=== PATIENT | female | born 1980 | race Caucasian/White ===

== ENCOUNTER 2019-02-17 23:18 | Inpatient (IN) ==
[2019-02-18] MEDS ORDERED: MoRPHine SULFATE 4 MG/ML 1 ML CARP\\VIAL IV STA (02:21)
[2019-02-18] MEDS ORDERED: HYDROmorphone INJ 0.5 MG/0.5 ML SYR ONE (02:32)
[2019-02-18] MEDS ORDERED: MAGNESIUM HYDROXIDE SUSP 30 ML UDC PO PRN (03:56)
[2019-02-18] MEDS ORDERED: ALUMINUM/MAGNESIUM SUSP 30 ML UDC PO PRN (03:56)
[2019-02-18] MEDS ORDERED: POLYETHYLENE (MIRALAX) 17 GM PACK PO PRN (03:56)
[2019-02-18 04:20] LABS: Basophils # (auto) 0.01 K/uL (0-0.2); Basophils % (auto) 0.1 %; Eosinophils # (auto) 0.03 K/uL (0-0.5); Eosinophils % (auto) 0.4 %; Hematocrit (blood only) 37.5 % (37-47); Hemoglobin 12.7 g/dL (12.0-16.0); Immature Granulocytes # (auto) 0.01 K/uL (0.00-0.02); Immature Granulocytes % (auto) 0.1 %; Lymphocytes # (auto) 1.86 K/uL (1.2-3.4); Lymphocytes % (auto) 25.1 %; Mean Corpuscular Volume 82.8 fL (80-100); Mean Platelet Volume 9.3 fL (7.4-10.4); Monocytes % (auto) 10.8 %; Neutrophils # (auto) 4.69 K/uL (1.4-6.5); Neutrophils % (auto) 63.5 %; Platelet Count 250 K/uL (130-400); RDW Coefficient of Variation 14.7 % (11.5-14.5); RDW Standard Deviation 44.7 fL (36.4-46.3); Red Blood Count 4.53 M/uL (4.2-5.4)
[2019-02-18] MEDS: PANTOprazole 40 MG in SYRINGE 0 ML IV SCH ×2 (04:23→21:32)
[2019-02-18 04:37] LABS: Albumin Level 3.3 gm/dl (3.4-5.0); BUN Creatinine Ratio 6.7 (10-20); Calcium 8.4 mg/dl (8.5-10.1); Creatinine Clr Calc Pharmacy 110.9 ml/min; Est GFR (African American) 128.3; Est GFR (Non-African American) 110.7; Magnesium 1.9 mg/dl (1.8-2.4)
[2019-02-18 04:39] LABS: Albumin Globulin Ratio 0.9 (0.9-2); Bilirubin,Total 0.4 mg/dl (0.2-1); Globulin 3.7 gm/dl (2.5-4.0)
[2019-02-18 04:57] LABS: Mean Corpuscular Hgb Conc 33.9 g/dL (32-36)
--- NOTE | 2019-02-18 05:03 | History & Physical Report ---
Date of Service February 18, 2019 Assessment & Plan (1) RUQ pain: Patient is a pleasant 39-year-old female H GERD, MVP, migraines, erythema nodosum who was a transfer from [facility] for abdominal pain and abnormal CT findings. RUQ pain/liver lesion Differential diagnosis includes: Esophagitis/gastritis/duodenitis/ulcer/cholecystitis or combination Liver lesion found on CT may be incidental considering patient has minimal risk factors and normal WBC count. Could be ?abscess or fatty liver deposition, unlikely HCC or metastasis. MRCP ordered this morning GI consulted, appreciate recommendations Zofran for nausea, IV Protonix twice daily per pharmacy Dilaudid as needed for pain (patient feels ill with morphine) Patient currently n.p.o. FYI if surgery is considered, patient prefers Dr. Green's group who are on-call through the weekend GERD Patient takes Protonix at home, currently converted to IV Erythema nodosum Patient states she has had extensive evaluation for this, including autoimmune work-up which was "half positive half negative" Patient states she has not had a flareup in 2 years. Constipation Bowel regimen as needed Migraines Patient has used Fioricet in the past, and states she has not had a migraine in almost 2 years Code: FULL DVTP: none given until further info gathered Dispo: admit to med/surg (2) Liver lesion: (3) GERD (gastroesophageal reflux disease): (4) Erythema nodosum: (5) Constipation: (6) History of migraine headaches: History of Present Illness Chief Complaint: RUQ pain Primary Care Provider: Santiago Olson Patient is a pleasant 39-year-old female H GERD, MVP, migraines, erythema nodosum who was a transfer from [facility] for abdominal pain and abno rmal CT findings. She presented with abdominal pain that radiated into her back x 2 days. She states in the last 24 hours, it has localized to her epigastrium and right upper quadrant. She states it is a sharp, grabbing pain with associated nausea but no vomiting. She was found to have a fever at OSH on arrival, but patient did not complain of feeling feverish. She denies any change to her stool patterns, and also denies dark urine or pale stool. Patient notes 2 years ago she had pancreatitis. She states that that time she had a full work- up of her gallbladder which showed marginal gallbladder disease. She states her HIDA scan showed her ejection fraction to be "3% higher than the limit" to remove her gallbladder. She states MRCP at that time was normal. She also had an EGD shortly after for continued nausea/indigestion, which revealed mild duodenitis. She takes a daily Protonix for this. Positive surgical history of appendectomy. Patient rarely drinks alcohol, and denies history of IV drug use. She is a current smoker. Positive family history of hepatic hemangioma. At [facility], a CT abdomen pelvis was performed. This revealed no abnormalities aside from a 3 cm liver lesion which queried HCC/malignancy/abscess. She was transferred here for further work-up. Labs at outside hospital included white blood cell count of 9, normal BMP, normal LFTs, normal lipase, negative troponin, normal lactic acid. She required several doses of Dilaudid to control her pain. Patient works as a nurse, and lives with her who is employed as a respiratory therapist at this facility. Allergies Allergy/AdvReac Type Severity Reaction Status Date / Time No Known Allergies Allergy Unverified 02/18/19 02:08 Home Medications Home Medications Medication Instructions Recorded Confirmed Type Prodrin 2 tabs PO Q6H PRN 02/18/19 02/18/19 History ondansetron HCl [Zofran] 8 mg PO Q8H PRN 02/18/19 02/18/19 History pantoprazole [Protonix] 40 mg PO DAILY 02/18/19 02/18/19 History Past Med/Surg History Social History Preferred Language: Estonian Communication Ability: Effective Health Unit Clerk Required: No Beliefs That Will Affect Care: None Current Living Situation: Spouse Feels Safe at Home: Yes Safety Concerns: Feels Safe At This Time Smoking Status: Current every day smoker Tobacco Type: cigarettes Do You Dip or Chew Tobacco: No Hx Alcohol Use: Yes Hx Substance Use: No Review of Systems Review of Systems: All systems reviewed & are unremarkable except as noted in HPI & below Constitutional: + fever and + anorexia; no chills Gastrointestinal: + abdominal pain and + nausea; no vomiting, no change in stools and no diarrhea/loose stools Physical Exam Constitutional: WD/WN, vitals as above + ill appearing, + diaphoretic and + overweight; + uncomfortable Eyes: PERRL, conjunctivae normal, anicteric sclerae ENMT: external ear and nose normal, oropharynx normal Neck: normal visual inspection Respiratory: normal respiratory effort, lungs clear to auscultation Cardiovascular: RRR, no murmur, no edema Gastrointestinal (Abdomen): Inspection/Auscultation: + abdomen distended Percussion/Palpation: + abdomen tender (RUQ, +murphys) and abdomen soft Musculoskeletal: no cyanosis or clubbing, extremities motor strength 5/5 Skin: no rashes, warm and dry Neurologic: PERRL, EOMI, accommodation nl, no face palsy, no dysarthria Psychiatric: A+Ox3, euthymic affect Results & Data Vital Signs (Past 12 Hours) Vital Signs Temp Pulse Resp BP Pulse Ox 02/18/19 00:58 36.8 C 100 H 16 119/72 98 Laboratory Results 02/18/19 02/18/19 Range/Units 04:05 04:05 WBC 7.40 (4.8-10.8) K/uL RBC 4.53 (4.2-5.4) M/uL Hgb 12.7 (12.0-16.0) g/dL Hct 37.5 (37-47) % MCV 82.8 (80-100) fL MCH 28.0 (25-34) pg MCHC 33.9 (32-36) g/dL RDW Std Deviation 44.7 (36.4-46.3) fL RDW Coeff of Jana 14.7 H (11.5-14.5) % Plt Count 250 (130-400) K/uL MPV 9.3 (7.4-10.4) fL Immature Gran % (Auto) 0.1 % Neut % (Auto) 63.5 % Lymph % (Auto) 25.1 % [place] % (Auto) 10.8 % Eos % (Auto) 0.4 % Baso % (Auto) 0.1 % Immature Gran # (Auto) 0.01 (0.00-0.02) K/uL Neut # (Auto) 4.69 (1.4-6.5) K/uL Lymph # (Auto) 1.86 (1.2-3.4) K/uL [place] # (Auto) 0.80 H (0.11-0.59) K/uL Eos # (Auto) 0.03 (0-0.5) K/uL Baso # (Auto) 0.01 (0-0.2) K/uL Sodium 139 (136-145) mmol/L Potassium 4.0 (3.5-5.1) mmol/L Chloride 110 H (98-107) mmol/L Carbon Dioxide 22 (21-32) mmol/L Anion Gap 7.0 (3-11) BUN 5 L (7-18) mg/dl Creatinine 0.70 (0.6-1.2) mg/dl Est Cr Clr Drug Dosing 110.9 ml/min Est GFR ( Amer) 128.3 Est GFR (Non-Af Amer) 110.7 BUN/Creatinine Ratio 6.7 L (10-20) Glucose 80 (70-99) mg/dl Calcium 8.4 L (8.5-10.1) mg/dl Magnesium 1.9 (1.8-2.4) mg/dl Total Bilirubin 0.4 (0.2-1) mg/dl AST 9 L (15-37) U/L ALT 19 (12-78) U/L Alkaline Phosphatase 73 (45-117) U/L Total Protein 7.0 (6.4-8.2) gm/dl Albumin 3.3 L (3.4-5.0) gm/dl Globulin 3.7 (2.5-4.0) gm/dl Albumin/Globulin Ratio 0.9 (0.9-2) Lipase 41 L (73-393) U/L Code Status & VTE Plan Code Status full Supervising Physician Co-Signing Physician Notes Attending addendum: I have physically seen this patient, have supervised the medical residents activities, and agree with the H&P unless as otherwise noted. Assessment and Plan: Right upper quadrant/epigastric pain- Patient with 3 cm questionable liver lesion on CT from [facility] is unlikely anything significant and not likely contributing to her present symptoms. NPO MRCP ordered. Consult Dr. Pierce from gastroenterology, as patient is likely to need an EGD to assess for possible esophagitis/gastritis/duodenitis/ulcer. Zofran 4 mg IV every 6 hours PRN. Pantoprazole 40 mg IV twice daily. Dilaudid 1 mg IV every 3 hours as needed severe pain. Acetaminophen 1000 mg IV every 8 hours PRN mild pain or temperature. Remainder of orders and notations as noted. PG Care Time/CCT Total # of Minutes Spent Total Time Spent with Patient: Total time spent is greater than 50% in coordination of care (as documented) at patient's floor/unit and/or counseling patient: Resident Activity Tracking Resident Involvement: Resident Care Provided Care Provided: Adult Hospital Medicine (1) GERD (gastroesophageal reflux disease) Esophagitis presence: esophagitis presence not specified Qualified Code(s): K21.9 - Gastro-esophageal reflux disease without esophagitis (2) Constipation Constipation type: chronic idiopathic constipation Qualified Code(s): K59.04 - Chronic idiopathic constipation
--- NOTE | 2019-02-18 07:23 | Magnetic Resonance Report ---
MR MRCP HISTORY: 39 years-old Female RUQ pain acute epigastric and right upper quadrant abdominal pain COMPARISON: None available TECHNIQUE: MRCP without the use of IV contrast was obtained utilizing institutional protocol FINDINGS: The large mzuli-av-myva rn cardiac localizer images demonstrate no gross abnormality of the imaged chest o r pelvis. The spleen is mildly enlarged, 14.0 cm. Trace ascites inferior to the right hepatic lobe. I ll-defined 2.2 x 1.9 cm ovoid lesion of roughly slightly increased T2 signal about the left hepatic l obe adjacent to the falciform ligament is noted with air noted within the adjacent hepatic flexure. Indeterminate 4 mm T2 hypointense lesion of the lateral interpolar left kidney. 9 mm T2 hyperintense lesion of the inferior pole right kidney may reflect a cyst. Aorta and IVC are unremarkable. No adeno juan. Or bowel dilation or wall thickening identified on these images. Suggestion of mild colonic di verticulosis. The common bile duct is normal, 3 mm transversely. No intrahepatic biliary ductal dilat ion. Gallbladder is unremarkable without cholelithiasis or wall thickening. No evidence of choledocho lithiasis. The pancreatic duct appears normal. No evidence of pancreatic divisum. Suggestion of perin eural root sleeve cysts about the spine. Soft tissues are unremarkable. IMPRESSION: 1. Unremarkable gallbladder without cholelithiasis, biliary ductal dilation or choledocholithiasis. 2. Mild splenomegaly. 3. 2.2 cm ill-defined ovoid area of increased signal about the left hepatic lobe adjacent to the falc iform ligament is likely artifactual secondary to adjacent air-filled hepatic flexure. This could be correlated with a follow-up right upper quadrant ultrasound if of further clinical concern. 4. Trace free fluid noted inferior to the right hepatic lobe. The above report was generated using voice recognition software. It may contain grammatical, syntax o r spelling errors. Electronically signed by: Av Dempsey M.D. 02/18/2019 7:22 AM
--- NOTE | 2019-02-18 07:34 | Hospitalist Progress Note ---
Date of Service February 18, 2019 Assessment & Plan (1) RUQ pain: Patient is a pleasant 39-year-old female PMH GERD, MVP, migraines, erythema nodosum who was a transfer from [facility] for abdominal pain and abnormal CT findings. RUQ pain/liver lesion Liver lesion found on CT may be incidental considering patient has minimal risk factors and normal WBC count. MRCP cyst 02/18 once again has ill described artifact versus a lesion not described as abscess Ultrasound of right upper quadrant shows normal liver parenchyma GI consulted, await recommendations, will try GI cocktail in the meantime patient's previous history of pancreatitis for undetermined etiology with work- up in the [place] system Zofran for nausea, IV Protonix twice daily per pharmacy Dilaudid as needed for pain (patient feels ill with morphine) Patient remains n.p.o. GERD Patient takes Protonix at home, currently converted to IV Erythema nodosum Patient states she has had extensive evaluation for this, including autoimmune work-up which was "half positive half negative" Patient states she has not had a flareup in 2 years. Constipation Bowel regimen as needed Migraines Patient has used Fioricet in the past, and states she has not had a migraine in almost 2 years Code: FULL DVTP: none given until further info gathered Dispo: admit to med/surg (2) Liver lesion: (3) GERD (gastroesophageal reflux disease): (4) Erythema nodosum: (5) Constipation: (6) History of migraine headaches: Subjective Patient is transferred from [facility] with significant right upper quadrant and epigastric pain which continues. There was a consideration of undescribed abnormality seen on CT scan of the abdomen pelvis. Subsequently she underwent an MRCP here which once again had a very ill-defined possible artifact versus abnormality in the liver recommending ultrasound. Ultrasound was performed here with attention to that area and read as completely normal with no abnormality seen in the parenchyma of the liver. We will continue to await gastrointestinal consultation will attempt a GI cocktail in the meantime to see if this is gastric related pain her LFTs and lipase have been unremarkable Review of Systems Review of Systems: ROS: well nourished well developed. No double vision blurry vision No problems with speech or swallowing No palpitations, chest pain or pressure No Wheezing or breathing issues Epigastric and right upper quadrant abdominal pain with mild nausea but no vomiting or diarrhea No burning urine urine frequency or changes in color No focal joint pain or muscle pain No skin rashes or oral lesions No unusual bruising or bleeding No focused back pain or numbness or loss of strength No changes in memory or confusion Physical Exam Physical Exam: The patient appeared in moderate to severe pain Vital signs as documented. Head exam is unremarkable. normocephalic, atraumatic Neck is without jugular venous distension, thyromegaly, or lymphademopathy Lungs are clear to auscultation and percussion. Cardiac exam reveals Rhythm is regular. First and second heart sounds normal. Abdominal exam reveals normal bowel sounds, soft no guarding no rebound she is markedly tender in the right upper quadrant and epigastrium not along the border of the ribs but actually inferior to the. Extremities are nonedematous and both pedal pulses are present Neurologic exam is A&Ox3, no focal deficits, strength is equal bilateral Psychologically seems neither anxious or depressed Skin is warm Dry without bruises or lesions Results & Data Vital Signs (Past 12 Hours) Vital Signs Temp Pulse Resp BP Pulse Ox 02/18/19 00:58 36.8 C 100 H 16 119/72 98 PG Care Time/CCT Total # of Minutes Spent Total Time Spent with Patient: Total time spent is greater than 50% in coordination of care (as documented) at patient's floor/unit and/or counseling patient: (1) GERD (gastroesophageal reflux disease) Esophagitis presence: esophagitis presence not specified Qualified Code(s): K21.9 - Gastro-esophageal reflux disease without esophagitis (2) Constipation Constipation type: chronic idiopathic constipation Qualified Code(s): K59.04 - Chronic idiopathic constipation
[2019-02-18] MEDS: HYDROmorphone INJ 1 MG/ML SYRINGE IV PRN ×2 (08:45→12:36)
[2019-02-18] MEDS ORDERED: KETOROLAC 30 MG/ML VIAL IV ONE (11:10)
[2019-02-18] MEDS: LACTATED RINGER'S 1,000 ML IV SCH ×2 (12:28→19:20)
--- NOTE | 2019-02-18 12:32 | Ultrasound Report ---
ABDOMINAL ULTRASOUND, RIGHT UPPER QUADRANT HISTORY: Abnormal MRCP. Assess for liver abnormality.. COMPARISON: MRCP 02/18/2019. FINDINGS: Pancreas: Partially obscured by overlying bowel gas and the patient's body habitus. However, the visu alized pancreas appears unremarkable. Liver: No hepatic lesions. The liver measures 17 cm in length. Specifically, no abnormality adjacent to the falciform ligament. Gallbladder: No gallbladder wall thickening. No gallstones. CBD: 4 mm. Right kidney: No hydronephrosis. IMPRESSION: No significant abnormality identified within the right upper quadrant. Specifically, the liver appear s unremarkable. Electronically signed by: Amaury Ayala M.D. 02/18/2019 12:31 PM
[2019-02-18] MEDS: ONDANSETRON INJ 2 MG/ML 2 ML VIAL IV PRN (12:37)
[2019-02-18] MEDS ORDERED: ALUMINUM/MAGNESIUM SUSP 18 ML, LIDOCAINE HCL VISCOUS 2% 6 ML, BARCODE IDENTIFIER 1 EA PO ONE (14:00)
[2019-02-19] MEDS: ONDANSETRON INJ 2 MG/ML 2 ML VIAL IV PRN ×3 (00:30→23:05)
[2019-02-19] MEDS: HYDROmorphone INJ 0.5 MG/0.5 ML SYR IV PRN (00:31)
[2019-02-19] MEDS: LACTATED RINGER'S 1,000 ML IV SCH ×3 (05:57→23:15)
[2019-02-19] MEDS: HYDROmorphone INJ 1 MG/ML SYRINGE IV PRN ×4 (08:21→23:05)
[2019-02-19] MEDS: PANTOprazole 40 MG in SYRINGE 0 ML IV SCH ×2 (08:23→21:00)
[2019-02-19 08:46] LABS: Basophils # (auto) 0.01 K/uL (0-0.2); Basophils % (auto) 0.1 %; Eosinophils # (auto) 0.03 K/uL (0-0.5); Eosinophils % (auto) 0.4 %; Hematocrit (blood only) 36.4 % (37-47); Hemoglobin 12.2 g/dL (12.0-16.0); Immature Granulocytes # (auto) 0.01 K/uL (0.00-0.02); Immature Granulocytes % (auto) 0.1 %; Lymphocytes % (auto) 14.9 %; Mean Corpuscular Hgb Conc 33.5 g/dL (32-36); Mean Corpuscular Volume 83.3 fL (80-100); Mean Platelet Volume 9.1 fL (7.4-10.4); Monocytes # (auto) 0.96 K/uL (0.11-0.59); Neutrophils # (auto) 5.25 K/uL (1.4-6.5); Neutrophils % (auto) 71.5 %; Platelet Count 231 K/uL (130-400); RDW Coefficient of Variation 14.5 % (11.5-14.5); RDW Standard Deviation 44.7 fL (36.4-46.3); Red Blood Count 4.37 M/uL (4.2-5.4); White Blood Count 7.36 K/uL (4.8-10.8)
[2019-02-19 09:11] LABS: Albumin Level 3.3 gm/dl (3.4-5.0); BUN Creatinine Ratio 7.1 (10-20); Calcium 8.8 mg/dl (8.5-10.1); Creatinine Clr Calc Pharmacy 127.2 ml/min; Est GFR (African American) 134.2; Est GFR (Non-African American) 115.8
[2019-02-19 09:14] LABS: Albumin Globulin Ratio 0.9 (0.9-2); Bilirubin,Total 0.6 mg/dl (0.2-1); Globulin 3.7 gm/dl (2.5-4.0)
--- NOTE | 2019-02-19 11:12 | Progress Note ---
DATE: 02/19/2019 SUBJECTIVE: The patient continues to complain of right upper quadrant pain, which has worsened overnight with now radiation to the right shoulder blade area in the right upper back. She has been getting Dilaudid for pain, but it is making her feel kind of spacey. She was not able to get her biliary scan done late yesterday afternoon and they do not do them on the weekends, so will had to be postponed till Thursday. Laboratory shows that her liver profile and lipase and amylase are still normal. She is afebrile, but has a low grade temperature at 37.8. PHYSICAL EXAMINATION: She appears to be in some abdominal pain. On exam, she has an umbilical scar from a piercing and tenderness in the right upper quadrant and epigastric area as well as the right scapular area posteriorly with a persistent positive Alvarez sign. IMPRESSION AND PLAN: The patient has what appears to be acute gallbladder disease without stones. Her mother and several of her mother's aunts have all had their gallbladders out. Mother did not have stones either. I strongly suspect that she has gallbladder disease. Surgeon on-call will be consulted today by Dr. Paige to render an opinion about whether she needs to proceed with laparoscopic cholecystectomy or wait for biliary scan first. We will continue to follow the patient.
--- NOTE | 2019-02-19 14:17 | Surgery Consultation ---
Date of Consultation February 19, 2019 Assessment & Plan (1) Liver lesion: Present on Admission?: Yes (2) RUQ pain: 39-year-old female with epigastric, right upper quadrant abdominal pain along with back pain. There was an abnormality identified on her liver which could be causing some of her symptoms. She also has had some fevers and tachycardia. However this is not sound biliary in nature. She may have underlying gallbladder disease, but there is does not appear to be an acute cholecystitis. I discussed the findings with Dr. Paige and with radiology. We will proceed with an MRI of the liver with Eovist to further differentiate the liver lesion. We will then proceed with a HIDA scan with ejection fraction to determine if there is any acute or chronic cholecystitis present. If the liver lesion needs any intervention or biopsies, we would recommend transfer to a tertiary facility. It appears to be a benign lesion and the HIDA scan reveals gallbladder disease then will discuss cholecystectomy as an inpatient or outpatient. I do long conversation with the family as well as coordinating care with the other services. The patient and her expressed understanding, all questions were answered, and they agree with the plan of care as stated. Surgery will follow. Present on Admission?: Yes History of Present Illness Reason for Consultation: Abdominal pain Attending Physician: Earnest Paige MD History of Present Illness 39-year-old female presented to the emergency department at [facility] with back pain and right upper quadrant epigastric abdominal pain. She is had a few episodes in the past. She also notes that she has had pancreatitis in the past but the pain is different from that. She had an evaluation for gallbladder disease in the past with a HIDA scan that showed a normal ejection fraction but was just above the cutoff for biliary dyskinesia. She has never had a history of stones. She does note vomiting after eating greasy foods. Her pain started and is not brought on by eating. Pain initially was in her back but then she developed right upper quadrant epigastric pain. It was a sharp cramping pain. Her back pain had resolved but now is returned. She denies any nausea or emesis at this time. She had a CT scan performed at [facility] which showed irregularity in her liver near the falciform ligament that was concerning for a neoplasm. The patient elected for transfer to [facility]. Yesterday she had an MRCP that showed no stones or choledocholithiasis, and no inflammation of the gallbladder. On that report it was noted that the abnormality in her liver may be artifact. She had an ultrasound to further assess and there was no lesion in the liver noted. She states that her mother had a liver hemangioma that was excised at the same time as her gallbladder surgery by Dr. Conley in [place]. She also has multiple members in her family who have had their gallbladders removed despite not having traditional symptoms or findings on imaging. Allergies Allergy/AdvReac Type Severity Reaction Status Date / Time No Known Allergies Allergy Unverified 02/18/19 02:08 Home Medications Home Medications Medication Instructions Recorded Confirmed Type Prodrin 2 tabs PO Q6H PRN 02/18/19 02/18/19 History ondansetron HCl [Zofran] 8 mg PO Q8H PRN 02/18/19 02/18/19 History pantoprazole [Protonix] 40 mg PO DAILY 02/18/19 02/18/19 History Patient History Social History Preferred Language: Khmer Communication Ability: Effective Talent Acquisition Director Required: No Beliefs That Will Affect Care: None Current Living Situation: Spouse Feels Safe at Home: Yes Safety Concerns: Feels Safe At This Time Smoking Status: Current every day smoker Tobacco Type: cigarettes Do You Dip or Chew Tobacco: No Hx Alcohol Use: Yes Hx Substance Use: No Review of Systems Review of Systems: All systems reviewed & are unremarkable except as noted in HPI & below Physical Exam Constitutional: WD/WN, vitals as above Eyes: PERRL, conjunctivae normal, anicteric sclerae ENMT: external ear and nose normal, oropharynx normal Neck: trachea midline, no thyromegaly Respiratory: normal respiratory effort, lungs clear to auscultation Cardiovascular: RRR, no murmur, no edema Gastrointestinal (Abdomen): Inspection/Auscultation: abdomen not distended Percussion/Palpation: + abdomen tender (Tender to palpation in the right upper quadrant epigastrium. Negative Alvarez sign) and abdomen soft; no guarding and abdomen not rigid Musculoskeletal: no cyanosis or clubbing, extremities motor strength 5/5 Skin: no rashes, warm and dry Neurologic: patellar DTR's 2+ bilat, sensation intact Genitourinary: no vaginal lesions, no adnexal mass Results & Data Vital Signs (Past 12 Hours) Vital Signs Temp Pulse Resp BP Pulse Ox 02/19/19 10:47 37.2 C 02/19/19 07:00 37.8 C H 90 19 117/70 96 Laboratory Results Laboratory Results - last 24 hr 02/19/19 02/19/19 08:38 08:38 WBC 7.36 RBC 4.37 Hgb 12.2 Hct 36.4 L MCV 83.3 MCH 27.9 MCHC 33.5 RDW Std Deviation 44.7 RDW Coeff of Jana 14.5 Plt Count 231 MPV 9.1 Immature Gran % (Auto) 0.1 Neut % (Auto) 71.5 Lymph % (Auto) 14.9 [place] % (Auto) 13.0 Eos % (Auto) 0.4 Baso % (Auto) 0.1 Immature Gran # (Auto) 0.01 Neut # (Auto) 5.25 Lymph # (Auto) 1.10 L [place] # (Auto) 0.96 H Eos # (Auto) 0.03 Baso # (Auto) 0.01 Sodium 141 Potassium 4.0 Chloride 109 H Carbon Dioxide 19 L Anion Gap 12.0 H BUN 4 L Creatinine 0.61 Est Cr Clr Drug Dosing 127.2 Est GFR ( Amer) 134.2 Est GFR (Non-Af Amer) 115.8 BUN/Creatinine Ratio 7.1 L Glucose 77 Calcium 8.8 Total Bilirubin 0.6 AST 11 L ALT 20 Alkaline Phosphatase 72 Total Protein 7.0 Albumin 3.3 L Globulin 3.7 Albumin/Globulin Ratio 0.9 Lipase [address] scan reviewed by myself and with radiologist over the phone and the report was reviewed. There is a 2 to 3 cm abnormality lateral to the falciform ligament in the liver. Differential is broad but includes FNH, adenoma, malignancy, developing abscess, or other neoplastic process. MR MRCP HISTORY: 39 years-old Female RUQ pain acute epigastric and right upper quadrant abdominal pain COMPARISON: None available TECHNIQUE: MRCP without the use of IV contrast was obtained utilizing institutional protocol FINDINGS: The large [id number] global logistics analyst localizer images demonstrate no gross abnormality of the imaged chest or pelvis. The spleen is mildly enlarged, 14.0 cm. Trace ascites inferior to the right hepatic lobe. Ill-defined 2.2 x 1.9 cm ovoid lesion of roughly slightly increased T2 signal about the left hepatic lobe adjacent to the falciform ligament is noted with air noted within the adjacent hepatic flexure. Indeterminate 4 mm T2 hypointense lesion of the lateral interpolar left kidney. 9 mm T2 hyperintense lesion of the inferior pole right kidney may reflect a cyst. Aorta and IVC are unremarkable. No adenopathy. Or bowel dilation or wall thickening identified on these images. Suggestion of mild colonic diverticulosis. The common bile duct is normal, 3 mm transversely. No intrahepatic biliary ductal dilation. Gallbladder is unremarkable without c holelithiasis or wall thickening. No evidence of choledocholithiasis. The pancreatic duct appears normal. No evidence of pancreatic divisum. Suggestion of perineural root sleeve cysts about the spine. Soft tissues are unremarkable. IMPRESSION: 1. Unremarkable gallbladder without cholelithiasis, biliary ductal dilation or choledocholithiasis. 2. Mild splenomegaly. 3. 2.2 cm ill-defined ovoid area of increased signal about the left hepatic lobe adjacent to the falciform ligament is likely artifactual secondary to adjacent air-filled hepatic flexure. This could be correlated with a follow-up right upper quadrant ultrasound if of further clinical concern. 4. Trace free fluid noted inferior to the right hepatic lobe. The above report was generated using voice recognition software. It may contain grammatical, syntax or spelling errors. ABDOMINAL ULTRASOUND, RIGHT UPPER QUADRANT HISTORY: Abnormal MRCP. Assess for liver abnormality.. COMPARISON: MRCP 02/18/2019. FINDINGS: Pancreas: Partially obscured by overlying bowel gas and the patient's body habitus. However, the visualized pancreas appears unremarkable. Liver: No hepatic lesions. The liver measures 17 cm in length. Specifically, no abnormality adjacent to the falciform ligament. Gallbladder: No gallbladder wall thickening. No gallstones. CBD: 4 mm. Right kidney: No hydronephrosis. IMPRESSION: No significant abnormality identified within the right upper quadrant. Specifically, the liver appears unremarkable.
[2019-02-19] MEDS ORDERED: GADOXETATE DISODIUM IV PRN (15:03)
--- NOTE | 2019-02-19 15:08 | Hospitalist Progress Note ---
Date of Service February 19, 2019 Assessment & Plan (1) RUQ pain: Patient is a pleasant 39-year-old female PMH GERD, MVP, migraines, erythema nodosum who was a transfer from [facility] for abdominal pain and abnormal CT findings. RUQ pain/liver lesion Liver lesion found on CT not corroborated on ultrasound. GI consulted, felt perhaps pursuing HIDA scan to consider cholecystitis or at least a malfunctioning gallbladder to cause her discomfort despite normal lab testing. Patient did have one bout of minor elevation of her temperature. Surgical evaluation is recommended MRI of the liver to contact the evaluate and rule out this what may be a artifact versus mass in the liver, pursue his HIDA scan this week and consider surgical correction if abnormalities are seen. Dr. Duran is involved in case this weekend. Zofran for nausea, IV Protonix twice daily per pharmacy Dilaudid as needed for pain (patient feels ill with morphine) Patient remains n.p.o. GERD Patient takes Protonix at home, currently converted to IV had no improvement with GI cocktail at this time Erythema nodosum Patient states she has had extensive evaluation for this, including autoimmune work-up which was "half positive half negative" Patient states she has not had a flareup in 2 years. He has no peripheral issues at this time Constipation Bowel regimen as needed Migraines Patient has used Fioricet in the past, and states she has not had a migraine in almost 2 years continues without migraines Code: FULL DVTP: none given until further info gathered Dispo: admit to med/surg (2) Liver lesion: (3) GERD (gastroesophageal reflux disease): (4) Erythema nodosum: (5) Constipation: (6) History of migraine headaches: Subjective I was called to visit the patient immediately in the morning upon arrival to the hospital to the family's discontent with her care from the overnight. There is some confusion about the timing of HIDA scan, and typically a non-stat HIDA scan is not performed we can do the radioisotope. The patient had one bout of low- grade temperature to 37.8 had no abnormal white blood cell count or lab testing and HIDA scan was deemed to be possibly until Thursday however the patient's pain was significant overnight. Her was at the nurses station using a loud voice and pacing about requested to speak to the physician. He claims that overnight he was rebuffed by the nighttime doctor being "too busy" to come see them and he was displeased about this. I evaluated the patient she was in mild distress she is continues to have pain in her abdomen. It was best understood that we would involve surgery to make a decision whether we should pursue a HIDA scan or other diagnostic evaluation given the initial complaints of having abnormality seen on imaging and persistent pain in the right upper quadrant despite normal laboratory testing. This seemed to satisfy the and I personally spoke to both Dr. Duran and his physician's elder assistant multiple occasions throughout the morning to keep in touch and apprised of was happy with this patient's care. At this point in time the plan of care was to pursue an MRI of the liver and then consider doing HIDA scan either today or early tomorrow morning to determine if the patient will require cholecystectomy. The patient and her seemed pleased with this treatment plan Review of Systems Review of Systems: ROS: well nourished well developed. Mild to moderate distress No double vision blurry vision No problems with speech or swallowing No palpitations, chest pain or pressure No Wheezing or breathing issues Epigastric right upper quadrant and right CVA abdominal pain with mild nausea but no vomiting or diarrhea No burning urine urine frequency or changes in color No focal joint pain or muscle pain No skin rashes or oral lesions No unusual bruising or bleeding No focused back pain or numbness or loss of strength No changes in memory or confusion Physical Exam Physical Exam: The patient appeared emotionally and physically distraught Vital signs as documented. Head exam is unremarkable. normocephalic, atraumatic Neck is without jugular venous distension, thyromegaly, or lymphademopathy Lungs are clear to auscultation and percussion. Cardiac exam reveals Rhythm is regular. First and second heart sounds normal. Abdominal exam reveals normal bowel sounds, she is soft but tender in epigastrium right upper quadrant mild CVA angle tenderness on the right Extremities are nonedematous and both pedal pulses are present Neurologic exam is A&Ox3, no focal deficits, strength is equal bilateral Psychologically seems neither anxious or depressed Skin is warm Dry without bruises or lesions Results & Data Vital Signs (Past 12 Hours) Vital Signs Temp Pulse Resp BP Pulse Ox 02/19/19 10:47 37.2 C 02/19/19 07:00 37.8 C H 90 19 117/70 96 PG Care Time/CCT Total # of Minutes Spent Total Time Spent with Patient: Total time spent is greater than 50% in coordination of care (as documented) at patient's floor/unit and/or counseling p atient: (1) GERD (gastroesophageal reflux disease) Esophagitis presence: esophagitis presence not specified Qualified Code(s): K21.9 - Gastro-esophageal reflux disease without esophagitis (2) Constipation Constipation type: chronic idiopathic constipation Qualified Code(s): K59.04 - Chronic idiopathic constipation
--- NOTE | 2019-02-19 16:26 | Magnetic Resonance Report ---
MR abdomen wo/w con CLINICAL HISTORY: 39 years-old Female presenting with indeterminant liver lesion, right upper quadran t pain. TECHNIQUE: Multisequence, multiplanar MR imaging of the abdomen was performed before and after the ad ministration of intravenous contrast. IV contrast: 10 mL of Eovist. COMPARISON: MRCP performed the previous day as well as outside CT from 02/17/2019. FINDINGS: Localizer images: Unremarkable. Lung bases: Lung base clear. Normal heart size. No pericardial or pleural effusion. Liver: Normal morphology. The fat fraction is normal. Patent hepatic vasculature. Solitary lesion not ed in the medial left hepatic lobe, which is mildly T1 hypointense and centrally T1 isointense, perip herally T2 hyperintense and centrally T2 hypointense, resulting in a target-like appearance. This is also diffusion hyperintense with heterogeneously low signal on ADC. Heterogeneous predominantly perip heral enhancement on portal venous and delayed phases. This does not have discontinuous peripheral no dular pattern. No early arterial enhancement. This lesion does not retain contrast on hepatobiliary s pecific phase. This lesion measures 3.5 cm in diameter on hepatobiliary specific phase. Surrounding t ransient hepatic intensity difference most pronounced on arterial phase. No additional lesion is evid ent. Biliary: No intrahepatic or extrahepatic biliary ductal dilatation. No gallstones. No pathological bl adder distention or pericholecystic fluid. Trace gallbladder wall thickening at the fundus, nonspecif ic. Pancreas: Normal. Spleen: Normal. Adrenal glands: Normal. Kidneys and ureters: Normal. No hydronephrosis. Bowel: Normal. No bowel obstruction. Peritoneal cavity: No free fluid. Lymph nodes: No enlarged lymph nodes in the abdomen. Vasculature: Aorta and IVC patent and normal in caliber. Abdominal wall: Normal. Musculoskeletal: Normal. IMPRESSION: 1. 3.5 cm solitary hepatic lesion in the medial left hepatic lobe. In the absence of a known maligna ncy, metastatic lesion is considered unlikely. This lesion is not definitively benign. Differential c onsiderations include adenoma, fibrolamellar hepatocellular carcinoma, hepatic epithelioid hemangioen dothelioma (HEHE), or peliosis hepatis. Direct tissue sampling recommended. 2. No convincing evidence of cholecystitis. No cholelithiasis. Mild gallbladder wall thickening at t he fundus may relate to adenomyomatosis or nonspecific secondary edema. Electronically signed by: Jc Ferrell M.D. 02/19/2019 4:25 PM
[2019-02-19] MEDS: ACETAMINOPHEN 65 ML IV PRN (17:33)
--- NOTE | 2019-02-19 18:04 | Surgery Progress Note ---
Date of Service February 19, 2019 Assessment & Plan (1) Liver lesion: Asked to discuss results of MRI with patient and . MRI showed a 3.5 cm mass with broad differential to include benign and malignant masses. Recommending tissue biopsy. I do not feel this would be amenable to a surgical biopsy as it is intraparenchymal. She will need percutaneous biopsy, likely CT- guided. This can be performed either as an inpatient or outpatient, but will likely require interventional radiology at a tertiary center. Regarding her abdominal pain and fevers, I informed her that I do not think that it would be yeboah to perform a cholecystectomy for dyskinesia or a nonacute process, as she may need further procedures in the future for the liver lesion. However, if she has an acute cholecystitis number would consider cholecystectomy. We will proceed with a HIDA scan without an ejection fraction. I discussed this with the patient and her and the nurse was present. All questions answered, the plan of care was discussed and the patient and her agree with the plan of care as stated. Present on Admission?: Yes (2) RUQ pain: Present on Admission?: Yes Results & Data Vital Signs (Past 12 Hours) Vital Signs Temp Pulse Resp BP Pulse Ox 02/19/19 18:00 37.2 C 02/19/19 16:30 38.5 C H 93 H 16 118/76 96 02/19/19 10:47 37.2 C 02/19/19 07:00 37.8 C H 90 19 117/70 96
[2019-02-20] MEDS: HYDROmorphone INJ 0.5 MG/0.5 ML SYR IV PRN (01:42)
[2019-02-20] MEDS: LACTATED RINGER'S 1,000 ML IV SCH (07:31)
[2019-02-20] MEDS ORDERED: PIPERACILL/TAZOBAC CONSULT ACTIVE PRN (07:46)
[2019-02-20] MEDS ORDERED: PIPERACILLIN/TAZOBACTAM 4.5 GM in DEXTROSE 5% 100 ML IV ONE (08:30)
[2019-02-20] MEDS: ONDANSETRON INJ 2 MG/ML 2 ML VIAL IV PRN ×2 (10:53→19:09)
[2019-02-20] MEDS: HYDROmorphone INJ 1 MG/ML SYRINGE IV PRN ×2 (10:53→19:10)
[2019-02-20] MEDS: PANTOprazole 40 MG in SYRINGE 0 ML IV SCH (10:54)
--- NOTE | 2019-02-20 10:56 | Nuclear Medicine Report ---
NM hepatobiliary CLINICAL HISTORY: Right upper quadrant pain. COMPARISON STUDY: Right upper quadrant ultrasound February 18, 2019. CT of the abdomen and pelvis February 052018. MRI of the abdomen February 19, 2019. TECHNIQUE: 5 mCi of technetium 99m Choletec was injected IV at 10:00 AM on February 20, 2019. Immediately following injection, imaging of the abdomen was performed in the anterior projection and carried out for 35 minutes. FINDINGS: Hepatic uptake of radiotracer is prompt and homogeneous. Activity is identified within the common bile duct, small bowel and gallbladder 10 minutes. IMPRESSION: No evidence for acute cholecystitis. Electronically signed by: Sunny Mckenzie M.D. 02/20/2019 10:54 AM
--- NOTE | 2019-02-20 11:04 | Surgery Progress Note ---
Date of Service February 20, 2019 Assessment & Plan (1) Liver lesion: 39-year-old female with abdominal pain, fevers, and indeterminate liver lesion confirmed by MRI yesterday. Her HIDA scan is negative for acute cholecystitis. Her constellation of symptoms is difficult to explain, but I feel that she would benefit from evaluation at a tertiary center. No indication for cholecystectomy at this time Recommend transfer to tertiary center for further evaluation of liver lesion along with fevers and abdominal pain. This could still represent an inflammatory infectious process. Call with questions or concerns Subjective 39-year-old female transferred from [place] for abdominal pain. During her work-up was identified that she has a 3.5 cm mass in her liver. She continues to have fevers, and epigastric pain radiating to her back. HIDA scan was performed this morning and was negative for acute cholecystitis. Physical Exam Constitutional: WD/WN, vitals as above Gastrointestinal (Abdomen): Percussion/Palpation: + abdomen tender (Epigastric tenderness to palpation, no guarding) and abdomen soft; no guarding and abdomen not rigid Results & Data Vital Signs (Past 12 Hours) Vital Signs Temp Pulse Resp BP Pulse Ox 02/20/19 07:23 38.0 C H 81 16 129/83 95 Diagnostic Findings MR abdomen wo/w con CLINICAL HISTORY: 39 years-old Female presenting with indeterminant liver lesion, right upper quadrant pain. TECHNIQUE: Multisequence, multiplanar MR imaging of the abdomen was performed before and after the administration of intravenous contrast. IV contrast: 10 mL of Eovist. COMPARISON: MRCP performed the previous day as well as outside CT from 02/17/2019. FINDINGS: Localizer images: Unremarkable. Lung bases: Lung base clear. Normal heart size. No pericardial or pleural effusion. Liver: Normal morphology. The fat fraction is normal. Patent hepatic vasculature. Solitary lesion noted in the medial left hepatic lobe, which is mildly T1 hypointense and centrally T1 isointense, peripherally T2 hyperintense and centrally T2 hypointense, resulting in a target-like appearance. This is also diffusion hyperintense with heterogeneously low signal on ADC. Heterogeneous predominantly peripheral enhancement on portal venous and delayed phases. This does not have discontinuous peripheral nodular pattern. No early arterial enhancement. This lesion does not retain contrast on hepatobiliary specific phase. This lesion measures 3.5 cm in diameter on hepatobiliary specific phase. Surrounding transient hepatic intensity difference most pronounced on arterial phase. No additional lesion is evident. Biliary: No intrahepatic or extrahepatic biliary ductal dilatation. No gallstones. No pathological bladder distention or pericholecystic fluid. Trace gallbladder wall thickening at the fundus, nonspecific. Pancreas: Normal. Spleen: Normal. Adrenal glands: Normal. Kidneys and ureters: Normal. No hydronephrosis. Bowel: Normal. No bowel obstruction. Peritoneal cavity: No free fluid. Lymph nodes: No enlarged lymph nodes in the abdomen. Vasculature: Aorta and IVC patent and normal in caliber. Abdominal wall: Normal. Musculoskeletal: Normal. IMPRESSION: 1. 3.5 cm solitary hepatic lesion in the medial left hepatic lobe. In the absence of a known malignancy, metastatic lesion is considered unlikely. This lesion is not definitively benign. Differential considerations include adenoma, fibrolamellar hepatocellular carcinoma, hepatic epithelioid hemangioendothelioma (HEHE), or peliosis hepatis. Direct tissue sampling recommended. 2. No convincing evidence of cholecystitis. No cholelithiasis. Mild gallbladder wall thickening at the fundus may relate to adenomyomatosis or nonspecific secondary edema. NM hepatobiliary CLINICAL HISTORY: Right upper quadrant pain. COMPARISON STUDY: Right upper quadrant ultrasound February 18, 2019. CT of the abdomen and pelvis February 17, 2019. MRI of the abdomen February 19, 2019. TECHNIQUE: 5 mCi of technetium 99m Choletec was injected IV at 10:00 AM on February 20, 2019. Immediately following injection, imaging of the abdomen was performed in the anterior projection and carried out for 35 minutes. FINDINGS: Hepatic uptake of radiotracer is prompt and homogeneous. Activity is identified within the common bile duct, small bowel and gallbladder 10 minutes. IMPRESSION: No evidence for acute cholecystitis.
[2019-02-20] MEDS: ACETAMINOPHEN 65 ML IV PRN (11:51)
[2019-02-20] MEDS ORDERED: PIPERACILLIN/TAZOBACTAM 3.375 GM in DEXTROSE 5% 100 ML IV SCH (12:00)
[2019-02-20] MEDS: SODIUM CHLORIDE 0.9% 500 ML IV SCH ×2 (13:33→19:15)
--- NOTE | 2019-02-20 14:44 | Hospitalist Progress Note ---
Date of Service February 20, 2019 Assessment & Plan (1) RUQ pain: Patient is a pleasant 39-year-old female PMH GERD, MVP, migraines, erythema nodosum who was a transfer from [facility] for abdominal pain and abnormal CT findings. RUQ pain/liver lesion Liver lesion found on CT not corroborated on ultrasound. GI consulted, felt perhaps pursuing HIDA scan to consider cholecystitis or at least a malfunctioning gallbladder to cause her discomfort despite normal lab testing. Patient did have one bout of minor elevation of her temperature. Surgical evaluation is recommended MRI of the liver to contact the evaluate and rule out this what may be a artifact versus mass in the liver, pursue his HIDA scan this week and consider surgical correction if abnormalities are seen. Dr. Duran is involved in case this weekend. 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 I phone [facility] and spoke with Dr. Rivers in hospital medicine and Dr. Wilkerson in gastroenterology. They said to the patient in transfer to their facility but did inform me that there is unlikely as they have a short bed availability. They are agreeable to have the intravenous Zosyn therapy which was started on 02/20. Patient remains on IV fluids she is n.p.o. she is with parenteral pain and antiemetic medication GERD Patient takes Protonix at home, currently converted to IV had no improvement with GI cocktail briefly during the stay Erythema nodosum Patient states she has had extensive evaluation for this, including autoimmune work-up which was "half positive half negative" Patient states she has not had a flareup in 2 years. He has no peripheral issues at this time Constipation Bowel regimen as needed patient still had diarrhea or constipation Migraines Patient has used Fioricet in the past, and states she has not had a migraine in almost 2 years continues without migraines he continues without recurrence Code: FULL DVTP: none given until further info gathered Dispo: Transfer to tertiary care center when bed availability is confirmed (2) Liver lesion: (3) GERD (gastroesophageal reflux disease): (4) Erythema nodosum: (5) Constipation: (6) History of migraine headaches: Subjective Patient also temperatures to 38.5 Celsius. Blood cultures are negative and reportedly also from [facility] are negative. MRI of the liver confirms an ovoid mass within the left lobe of the liver near the falciform ligament. HIDA scan also confirms the fact that there is no suggestive signs of acute cholecystitis or cholangitis. Initial urinalysis is also negative the patient has no focal complaints other than abdominal pain and right upper quadrant radiating to her back Evaluation with Dr. Duran of general surgery recommends transfer to a center for possible interventional radiology biopsy of the site Review of Systems Review of Systems: ROS: well nourished well developed. She is in mild to moderate discomfort No double vision blurry vision No problems with speech or swallowing No palpitations, chest pain or pressure No Wheezing or breathing issues Right upper quadrant epigastric abdominal pain associate with nausea without vomiting. She also has no diarrhea. The pain radiates to her back it is an ache with some crescendo decrescendo components to it worsened by even oral intake of ice chips No burning urine urine frequency or changes in color No focal joint pain or muscle pain No skin rashes or oral lesions No unusual bruising or bleeding Right CVA back pain No changes in memory or confusion Physical Exam Physical Exam: The patient appeared to mild to moderate discomfort Vital signs as documented. Head exam is unremarkable. normocephalic, atraumatic Neck is without jugular venous distension, thyromegaly, or lymphademopathy Lungs are clear to auscultation and percussion. Cardiac exam reveals Rhythm is regular. First and second heart sounds normal. Abdominal exam reveals normal bowel sounds tenderness the right upper quadrant epigastrium and right CVA angle. There is no organomegaly or masses felt there is no rebound there is voluntary guarding Extremities are nonedematous and both pedal pulses are present Neurologic exam is A&Ox3, no focal deficits, strength is equal bilateral Psychologically seems anxious Skin is warm Dry without bruises or lesions Results & Data Vital Signs (Past 12 Hours) Vital Signs Temp Pulse Resp BP Pulse Ox 02/20/19 12:30 37.8 C H 02/20/19 11:48 38.1 C H 02/20/19 07:23 38.0 C H 81 16 129/83 95 PG Care Time/CCT Total # of Minutes Spent Total Time Spent with Patient: Total time spent is greater than 50% in coordination of care (as documented) at patient's floor/unit and/or counseling patient: (1) GERD (gastroesophageal reflux disease) Esophagitis presence: esophagitis presence not specified Qualified Code(s): K21.9 - Gastro-esophageal reflux disease without esophagitis (2) Constipation Constipation type: chronic idiopathic constipation Qualified Code(s): K59.04 - Chronic idiopathic constipation
--- NOTE | 2019-02-20 17:36 | Discharge Summary ---
Date of Service February 20, 2019 Admission HPI Per Admitting Provider Patient is a pleasant 39-year-old female PMH GERD, MVP, migraines, erythema nodosum who was a transfer from [facility] for abdominal pain and abnormal CT findings. She presented with abdominal pain that radiated into her back x 2 days. She states in the last 24 hours, it has localized to her epigastrium and right upper quadrant. She states it is a sharp, grabbing pain with associated nausea but no vomiting. She was found to have a fever at OSH on arrival, but patient did not complain of feeling feverish. She denies any change to her stool patterns, and also denies dark urine or pale stool. Patient notes 2 years ago she had pancreatitis. She states that that time she had a full work- up of her gallbladder which showed marginal gallbladder disease. She states her HIDA scan showed her ejection fraction to be "3% higher than the limit" to remove her gallbladder. She states MRCP at that time was normal. She also had an EGD shortly after for continued nausea/indigestion, which revealed mild duode nitis. She takes a daily Protonix for this. Positive surgical history of appendectomy. Patient rarely drinks alcohol, and denies history of IV drug use. She is a current smoker. Positive family history of hepatic hemangioma. At [facility], a CT abdomen pelvis was performed. This revealed no abnormalities aside from a 3 cm liver lesion which queried HCC/malignancy/abscess. She was transferred here for further work-up. Labs at outside hospital included white blood cell count of 9, normal BMP, normal LFTs, normal lipase, negative troponin, normal lactic acid. She required several doses of Dilaudid to control her pain. Patient works as a nurse, and lives with her who is employed as a respiratory therapist at this facility. Principal Diagnosis fever 3 cm liver mass, left lobe RUQ pain Discharge Exam Gastrointestinal (Abdomen) Inspection/Auscultation: normal bowel sounds; abdomen not distended Percussion/Palpation: + abdomen tender and + guarding Discharge Data Allergies Allergy/AdvReac Type Severity Reaction Status Date / Time No Known Allergies Allergy Unverified 02/18/19 02:08 Consultations 02/18/19 03:58 Consult Gastroenterology Routine 02/19/19 08:30 Consult General Surgery Routine 02/20/19 12:22 Burn CD for patient Routine Ordered Studies 02/18/19 03:52 MR MRCP Routine 02/18/19 11:01 US liver Routine 02/19/19 12:15 MR abdomen wo/w con Stat Hospital Course (1) RUQ pain: Patient is a pleasant 39-year-old female PMH GERD, MVP, migraines, erythema nodosum who was a transfer from [facility] for abdominal pain and abnormal CT findings. RUQ pain/liver lesion Liver lesion found on CT not corroborated on ultrasound. GI consulted, felt perhaps pursuing HIDA scan to consider cholecystitis or at least a malfunctioning gallbladder to cause her discomfort despite normal lab testing. Patient did have one bout of minor elevation of her temperature. Surgical evaluation is recommended MRI of the liver to contact the evaluate and rule out this what may be a artifact versus mass in the liver, pursue his HIDA scan this week and consider surgical correction if abnormalities are seen. Dr. Duran is involved in case this weekend. 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 I phone [facility] and spoke with Dr. Rivers in hospital medicine and Dr. Wilkerson in gastroenterology. They said to the patient in transfer to their facility but did inform me that there is unlikely as they have a short bed availability. They are agreeable to have the intravenous Zosyn therapy which was started on 02/20. Patient remains on IV fluids she is n.p.o. she is with parenteral pain and antiemetic medication GERD Patient takes Protonix at home, currently converted to IV had no improvement with GI cocktail briefly during the stay Erythema nodosum Patient states she has had extensive evaluation for this, including autoimmune work-up which was "half positive half negative" Patient states she has not had a flareup in 2 years. He has no peripheral issues at this time Constipation Bowel regimen as needed patient still had diarrhea or constipation Migraines Patient has used Fioricet in the past, and states she has not had a migraine in almost 2 years continues without migraines he continues without recurrence Code: FULL DVTP: none given until further info gathered Dispo: Transfer to tertiary care center when bed availability is confirmed (2) Liver lesion: (3) GERD (gastroesophageal reflux disease): (4) Erythema nodosum: (5) Constipation: (6) History of migraine headaches: Total Time Total Time Spent Total Time Spent (In Minutes): greater than 30 minutes were required to prepare discharge Discharge Plan Discharge Items Patient Disposition: Transfer Acute Care Hospital Reason For Visit: LIVER LESION Discharge Diagnosis: fever, liver lesion Discharge Goals: Decrease discomfort and Diagnostic testing Activity: As commented below Activity Comment: rest and await work up Non-emergency contact: Primary Care Provider and Size Changer Call non-emergency contact if: you have any medication questions Follow-up/Referrals: Santiago Olson [Primary Care Provider] - Diet: See below Diet Comment: please keep npo until we are aware of transfer plans Addtl Provider Instructions: please follow up as recommended by rosalina Prescriptions: New Piperacill/Tazobac Consult [Consult] 1 ea N/A UD PRN (Reason: fever) Qty: 1 RF: 0 Continued pantoprazole [Protonix] 40 mg Tablet,Delayed Release (Dr/Ec) 40 mg PO DAILY RF: 0 Discontinued ondansetron HCl [Zofran] 8 mg Tablet 8 mg PO Q8H PRN (Reason: Nausea) RF: 0 Prodrin tablet 2 tabs PO Q6H PRN (Reason: Pain) RF: 0 Stand-Alone Forms: [facility] Discharge Orders: Discharge Order (Routine); Ordered 02/20/19 Ordered By: Earnest Paige Admission Data Admit Date/Time: 02/18/19 00:57 Attending Provider: Earnest Paige Admit Provider: Thien Tejada Primary Care Provider: Santiago Olson Other Providers: Eliu Pierce ; Thien Tejada ; Konstantin Duran Service: Medical Other Interventions: Discharge Summary Assessment (RN) Last Done: 02/20/19 16:57
--- NOTE | 2019-02-21 07:34 | Consultation Report ---
DATE OF CONSULTATION: 02/18/2019 REASON FOR EVALUATION: Right upper quadrant pain. HISTORY OF PRESENT ILLNESS: The patient is a 39-year-old who presented to [facility] on transfer from [facility]. Two days ago, she developed pain in the upper mid back that she thought she had pulled a muscle. She took some Extra Strength Tylenol, but it lasted all day and yesterday she went to the emergency room at [facility] when the pain got worse and was involving the epigastric and right upper quadrant as well. There was also some associated nausea. In [place], she had a CT scan, which suggested a lesion in the area of the falciform ligament of the liver. The patient was afebrile, had a normal white count, normal liver tests, normal amylase and lipase. She was transferred to [facility] for possible abscess or metastatic disease. At [facility], she had an MRCP, which again showed vague lesion in this area, which is about 3 cm, but it could also have been an artifact. A subsequent ultrasound showed no lesion there. She continues to have pain and a little bit of nausea in the epigastric and right upper quadrant. Of note is that her mother had her gallbladder out a couple of years ago for a diseased gallbladder without stones. A couple of years ago, the patient had pancreatitis and had an EGD, which was negative. She also had a biliary scan at that time, which showed a low ejection fraction, but just above in the normal range. PAST MEDICAL HISTORY: Remarkable for acid reflux, idiopathic erythema nodosum, she has never had a colonoscopy, she did have an EGD 2 years ago. Migraines. HOME MEDICATIONS: Prodrin, Zofran and Protonix. ALLERGIES: None. FAMILY HISTORY: Positive for cholecystitis in her mother. SOCIAL HISTORY: The patient is , works at [employer], smokes cigarettes, consumes alcohol. REVIEW OF SYSTEMS: Positive for anorexia and abdominal pain. The remainder is negative. PHYSICAL EXAMINATION: GENERAL: The patient appears in no acute distress. VITAL SIGNS: Normal. She is afebrile. SKIN: Darkly tanned from using a tanning bed. ABDOMEN: Shows an umbilical piercing scar and a right lower quadrant scar from a previous appendectomy. There is tenderness in the epigastric and in the right upper quadrant with a positive Alvarez sign with inspiration. IMPRESSION AND PLAN: The patient has a rather acute onset right upper quadrant pain with normal labs and no fever. She does have a family history of gallbladder disease without stones in her mother. She has a positive Alvarez sign. I suspect she may have cholecystitis and I would recommend getting a biliary scan with an ejection fraction. I am not sure if that is going to be able to be done today as the patient has just recently had some Dilaudid pain medication, which may interfere with the validity of the study. Once this is completed, we will have a better idea where to go from there. The erythema nodosum is curious and she has never had a colonoscopy. At some point, she should probably have a colonoscopy to rule out Crohn's disease too. This can be done as an outpatient if needed. We will continue to follow the patient.
== END 2019-02-20 19:50 | disposition short-term general hospital (02) | DRG 443 ==
LOC: 2N 02-18 00:57 → SUATTDRO 02-18 00:57